=== PATIENT | male | born 1940 | race Caucasian/White ===

== ENCOUNTER 2018-12-31 05:54 | Day surgery (SDC) | payer MEDICARE ==
[~2018-12-31] VITALS: Ht 175.3 cm; Wt 100.0 kg
[2018-12-31] MEDS ORDERED: LACTATED RINGERS 1,000 ML IV SCH (06:34)
[2018-12-31 06:54] VITALS: BP 151/86
[2018-12-31] MEDS ORDERED: OXYMETAZOLINE NASAL SPRAY 0.05%, 15ML ONE (07:16)
[2018-12-31] MEDS ORDERED: LIDOCAINE 1%-EPI 1:100K, 30ML ONE (07:16)
[2018-12-31] MEDS ORDERED: EPINEPHRINE TOPICAL SOLN 1 MG/ML, 30ML ONE (07:16)
[2018-12-31] MEDS ORDERED: FLUORESCEIN SODIUM 500 MG/5 ML ONE (07:16)
[2018-12-31] MEDS ORDERED: BACITRACIN OINT 500U/GM, 15 GM ONE (07:16)
[2018-12-31] MEDS ORDERED: FENTANYL PF 250 MCG/5ML ONE (07:30)
[2018-12-31] MEDS ORDERED: CLINDAMYCIN 150 MG/ML, 6ML ONE (07:38)
[2018-12-31] MEDS ORDERED: HYDROmorphone 2 MG/ML, 1ML IVPush PRN (08:30)
[2018-12-31] MEDS ORDERED: PROMETHAZINE 25 MG SUPP PR PRN (08:30)
[2018-12-31] MEDS ORDERED: ACETAMINOPHEN 325 MG TABLET PO PRN (08:30)
[2018-12-31] MEDS ORDERED: PROMETHAZINE 25 MG/ML, 1ML IV PRN (08:30)
[2018-12-31] MEDS ORDERED: OXYcodone 5 MG/5 ML ORAL.SOL UDC PO PRN (08:30)
[2018-12-31] MEDS ORDERED: ONDANSETRON 2MG/ML, 2ML IV PRN (08:30)
[2018-12-31] MEDS ORDERED: ONDANSETRON ODT 8 MG PO PRN (08:30)
[2018-12-31] MEDS ORDERED: PROPOFOL 10 MG/ML, 20ML ONE (08:34)
[2018-12-31] MEDS ORDERED: SUCCINYLCHOLINE 20 MG/ML, 10ML ONE (08:34)
[2018-12-31] MEDS ORDERED: GLYCOPYRROLATE 0.2MG/1ML, 5ML ONE (08:34)
[2018-12-31] MEDS ORDERED: ROCURONIUM 10MG/ML,5ML ONE (08:34)
[2018-12-31] MEDS ORDERED: DEXAMETHASONE 4 MG/ML, 1ML ONE (08:34)
[2018-12-31] MEDS ORDERED: CEFAZOLIN 1,000 MG ONE (08:34)
[2018-12-31] MEDS ORDERED: NEOSTIGMINE 1 MG/ML, 10ML ONE (08:34)
[2018-12-31] MEDS ORDERED: ONDANSETRON 2MG/ML, 2ML ONE (08:34)
[2018-12-31] MEDS ORDERED: BACITRACIN 50,000 UNIT ONE (08:40)
[2018-12-31] MEDS ORDERED: hydrALAzine 20 MG/ML, 1ML ONE (10:47)
[2018-12-31] MEDS: hydrALAzine 20 MG/ML, 1ML IV PRN ×2 (10:48→11:08)
[2018-12-31] MEDS ORDERED: FENTANYL PF 100 MCG/2ML ONE (10:54)
[2018-12-31] MEDS ORDERED: ACETAMINOPHEN 650 MG/20.3 ML UDC ONE (10:54)
[2018-12-31] MEDS: FENTANYL PF 100 MCG/2ML IV PRN ×2 (10:59→11:08)
== END 2018-12-31 13:00 | disposition home or self-care (01) ==
LOC: OUT 05:54
PROVIDERS: ATTEND Otolaryngology
DX: J32.0 Chronic maxillary sinusitis (principal); J32.2 Chronic ethmoidal sinusitis; J32.3 Chronic sphenoidal sinusitis; J33.8 Other polyp of sinus; J34.3 Hypertrophy of nasal turbinates; Z85.038 Personal history of other malignant neoplasm of large intestine
CPT/HCPCS: 30140; 31240; 31253; 31259; 31267; 87070; 87075; 87205; 88304; 88311; 93005; J0360; J1100; J2405; J2704; J2710; J3010; J3490; J7120; 87077; J0690; J0330